=== PATIENT | female | born 1990 | race Caucasian/White ===

== ENCOUNTER 2017-06-28 21:36 | Emergency (ER) | payer BC ==
[2017-06-28 22:07] VITALS: BP 117/85
[2017-06-28] MEDS ORDERED: diphenhydrAMINE 50 MG/ML SDV IVPUSH ONE (22:21)
[2017-06-28] MEDS ORDERED: methylPREDNISolone Sodium Succinate 125 MG/2 ML SDV IVPUSH ONE (22:22)
[2017-06-28] MEDS ORDERED: Famotidine 20 MG/2 ML SDV IVPUSH ONE (22:22)
--- NOTE | 2017-06-28 22:27 | EDM.PDOC ---
ED HPI GENERAL MEDICAL PROBLEM - General Chief Complaint: Allergic Reaction Stated Complaint: ALLERGIC REACTION Time Seen by Provider: 06/28/17 22:12 Source of Information: Reports: Patient History Limitations: Reports: No Limitations - History of Present Illness INITIAL COMMENTS - FREE TEXT/NARRATIVE: This is a 26-year-old female. This evening she was having a normal meal watching a movie when she developed itching all over and some hives on her legs and her face. The only new thing was tomato paste that they used on their pizza but other than that she's eaten everything before. She does have a history many years ago where she had allergic reaction with hives that closed up her throat so she comes to the ER for evaluation. She denies any wheezing she denies any difficulty in swallowing. The hives on her legs seemed to resolve though she still has some hives on her forehead and the right side of her neck. She does complain of itching all over. She denies any other acute symptoms. The last time she had a reaction similar to this they did skin test on her later and they couldn't find out what was causing her reaction. - Related Data Allergies Allergy/AdvReac Type Severity Reaction Status Date / Time infliximab [From Remicade] Allergy Other Verified 06/28/17 22:12 Sulfa (Sulfonamide Allergy Rash Verified 06/28/17 22:11 Antibiotics) Home Meds: Home Meds . [No Known Home Meds] 06/28/17 [History] Past Medical History Gastrointestinal History: Reports: Other (See Below) Other Gastrointestinal History: crohns - Past Surgical History Other GI Surgeries/Procedures: abdominal surgeries for crohns Social & Family History - Tobacco Use Smoking Status *Q: Never Smoker - Caffeine Use Caffeine Use: Reports: Coffee - Recreational Drug Use Recreational Drug Use: No ED ROS ALLERGIC REACTION - Review of Systems Review Of Systems: See Below Constitutional: Reports: No Symptoms HEENT: Reports: Other (As per history of present illness) Respiratory: Denies: Shortness of Breath, Wheezing Cardiovascular: Reports: No Symptoms Endocrine: Reports: No Symptoms GI/Abdominal: Reports: No Symptoms : Reports: No Symptoms Musculoskeletal: Reports: No Symptoms Skin: Reports: Other (As per history of present illness) Neurological: Reports: No Symptoms Psychiatric: Reports: No Symptoms Hematologic/Lymphatic: Reports: No Symptoms ED EXAM GENERAL NO PERIP PULSE - Physical Exam Exam: See Below Exam Limited By: No Limitations General Appearance: Alert, WD/WN, No Apparent Distress Eye Exam: Bilateral Eye: Normal Inspection Ears: Normal External Exam Nose: Normal Inspection Throat/Mouth: Normal Inspection, Normal Lips, Normal Oropharynx, Normal Voice, No Airway Compromise Head: Atraumatic Neck: Supple Respiratory/Chest: No Respiratory Distress, Lungs Clear, Normal Breath Sounds Cardiovascular: Regular Rate, Rhythm, No Murmur GI/Abdominal: Soft Back Exam: Full Range of Motion Extremities: Normal Inspection, Normal Range of Motion, Other (There are no hives noted on her arms or legs presently) Neurological: Alert, Oriented Psychiatric: Other Skin Exam: Other (She only has 3 hives noted to all 4 had 1 on the right side of her neck at this time) Course - Vital Signs Last Recorded V/S: Last Vital Signs Temp 98.4 F 06/28/17 22:06 Pulse 73 06/28/17 22:06 Resp 20 06/28/17 22:06 BP 117/85 06/28/17 22:06 Pulse Ox 100 06/28/17 22:06 - Orders/Labs/Meds Meds: Medications Discontinued Medications Generic Name Dose Route Start Last Admin Trade Name Ajayq PRN Reason Stop Dose Admin Diphenhydramine HCl 25 mg 06/28/17 22:21 06/28/17 22:46 Benadryl IVPUSH 06/28/17 22:22 25 mg ONETIME ONE Administration Famotidine 20 mg 06/28/17 22:22 06/28/17 22:49 Pepcid IVPUSH 06/28/17 22:23 20 mg ONETIME ONE Administration Methylprednisolone Sodium Succinate 125 mg 06/28/17 22:22 06/28/17 22:51 Solu-Medrol IVPUSH 06/28/17 22:23 125 mg ONETIME ONE Administration - Re-Assessments/Exams Free Text/Narrative Re-Assessment/Exam: 06/28/17 23:17 Patient is feeling much better all the itching has resolved. She is somewhat sleepy and the hives on her forehead and neck appear to be better but they're not completely resolved. She wants to go home. She is having no difficulty in breathing and no difficulty in swallowing. Departure - Departure Time of Disposition: 23:18 Disposition: Home, Self-Care 01 Condition: Good Clinical Impression: Urticaria, Itching Allergic reaction Qualifiers: Encounter type: initial encounter Qualified Code(s): T78.40XA - Allergy, unspecified, initial encounter - Discharge Information Referrals: Dre Pemberton MD [Primary Care Provider] - Forms: ED Department Discharge Additional Instructions: In about 6 hours if the itching seems to come back and take another Benadryl 25 mg, if there is any difficulty in breathing or difficulty in swallowing and return to the ER immediately, follow up with your family physician this coming week for recheck to see if he can determine what might have caused the allergic reaction, look at the food that you ate this evening and see if there is anything unusual and it might give us a clue as to why you had this reaction, return to the ER as needed
== END 2017-06-28 23:30 | disposition home or self-care (01) ==
LOC: JD.ED 21:36
DX: L50.0 Allergic urticaria (principal); L29.9 Pruritus, unspecified; Z88.2 Allergy status to sulfonamides
CPT/HCPCS: 96374; 96375; 99283; J1200; J2930; 99282

== ENCOUNTER 2017-12-10 19:47 | Emergency (ER) | payer BC ==
[2017-12-10] MEDS ORDERED: Ondansetron 4 MG/2 ML SDV IVPUSH ONE (21:29)
[2017-12-10] MEDS ORDERED: HYDROmorphone 0.5 MG/0.5 ML SYRINGE IVPUSH ONE (21:29)
[2017-12-10] MEDS ORDERED: Sodium Chloride 0.9% 1,000 ML IV SCH (21:30)
[2017-12-10] MEDS ORDERED: Sodium Chloride 0.9% 10 ML Syringe FLUSH PRN (21:31)
--- NOTE | 2017-12-10 21:36 | EDM.PDOC ---
<Zay Bueno O - Last Filed: 12/10/17 23:55> ED HPI GENERAL MEDICAL PROBLEM - General Chief Complaint: Respiratory Problem Stated Complaint: FEVER,COUGHING Time Seen by Provider: 12/10/17 21:25 Source of Information: Reports: Patient History Limitations: Reports: No Limitations - History of Present Illness INITIAL COMMENTS - FREE TEXT/NARRATIVE: Patient is a 27-year-old female presents ED complaining of headache, fever, chills, and body aches that started Saturday afternoon. Patient developed a high fever this afternoon of 103.8. This was around 7:00 this evening. Take Tylenol and the temperature upon admission was 98.4. She is explained rigors with admission to the ED. She does have some CVA tenderness bilaterally. She has no pain with urination, nausea/vomiting, chest pain, cough, shortness of breath, rash, or recent sick exposures. She did not receive the flu vaccination. She is a past history of abdominal surgeries for Crohn's. 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 She is on entyvio an monoclonal antibody. She denies being . Generalized Pain Score (Numeric/FACES): 7 - Related Data Allergies Allergy/AdvReac Type Severity Reaction Status Date / Time infliximab [From Remicade] Allergy Other Verified 06/28/17 22:12 Sulfa (Sulfonamide Allergy Rash Verified 06/28/17 22:11 Antibiotics) Home Meds: Home Meds Vedolizumab [Entyvio] 0 mg IV ASDIRECTED 12/10/17 [History] Past Medical History Gastrointestinal History: Reports: Other (See Below) Other Gastrointestinal History: crohns - Past Surgical History Other GI Surgeries/Procedures: abdominal surgeries for crohns Social & Family History - Tobacco Use Smoking Status *Q: Never Smoker - Caffeine Use Caffeine Use: Reports: Coffee, Soda, Tea - Recreational Drug Use Recreational Drug Use: No ED ROS GENERAL - Review of Systems Review Of Systems: ROS reveals no pertinent complaints other than HPI. ED EXAM, GENERAL - Physical Exam Exam: See Below Exam Limited By: No Limitations General Appearance: Alert, WD/WN, Moderate Distress Eye Exam: Bilateral Eye: PERRL Ears: Normal External Exam, Normal Canal, Hearing Grossly Normal, Normal TMs Nose: Normal Inspection, Normal Mucosa, No Blood Throat/Mouth: Normal Inspection, Normal Oropharynx, Normal Voice, No Airway Compromise Head: Atraumatic, Normocephalic Neck: Normal Inspection, Supple, Non-Tender, Full Range of Motion Respiratory/Chest: No Respiratory Distress, Lungs Clear, Normal Breath Sounds, No Accessory Muscle Use, Chest Non-Tender Cardiovascular: Normal Peripheral Pulses, Tachycardia Peripheral Pulses: 4+: Radial (R) GI/Abdominal: Normal Bowel Sounds, Soft, Non-Tender, No Organomegaly, No Distention Back Exam: Normal Inspection, CVA Tenderness (L), CVA Tenderness (R) Extremities: Normal Inspection Neurological: Alert, Oriented, CN II-XII Intact, Normal Cognition, No Motor/ Sensory Deficits Psychiatric: Normal Affect, Normal Mood Skin Exam: Warm, Dry, Intact, Normal Color, No Rash Course - Vital Signs Last Recorded V/S: Last Vital Signs Temp 36.7 C 12/11/17 00:10 Pulse 99 12/11/17 00:10 Resp 16 12/11/17 00:10 BP 103/70 12/11/17 00:10 Pulse Ox 96 12/11/17 00:10 - Orders/Labs/Meds Labs: Laboratory Tests 12/10/17 12/10/17 12/10/17 Range/Units 21:50 21:50 21:50 WBC 4.74 (3.98-10.04) K/mm3 RBC 4.85 (3.98-5.22) M/mm3 Hgb 13.2 (11.2-15.7) gm/L Hct 40.7 (34.1-44.9) % MCV 83.9 (79.4-94.8) fl MCH 27.2 (25.6-32.2) pg MCHC 32.4 (32.2-35.5) g/dl RDW Std Deviation 40.1 (36.4-46.3) fL Plt Count 140 L (182-369) K/mm3 MPV 10.9 (9.4-12.3) fl Neutrophils % (Manual) 88 H (40-60) % Band Neutrophils % 0 (0-10) % Lymphocytes % (Manual) 8 L (20-40) % Atypical Lymphs % 0 % Monocytes % (Manual) 3 (2-10) % Eosinophils % (Manual) 1 (0.7-5.8) % Basophils % (Manual) 0 L (0.1-1.2) Platelet Estimate Adequate RBC Morph Comment Normal Sodium 135 L (136-145) mEq/L Potassium 3.7 (3.5-5.1) mEq/L Chloride 101 (98-107) mEq/L Carbon Dioxide 22 (21-32) mEq/L Anion Gap 15.7 H (5-15) BUN 12 (7-18) mg/dL Creatinine 0.9 (0.55-1.02) mg/dL Est Cr Clr Drug Dosing 69.86 mL/min Estimated GFR (MDRD) > 60 (>60) mL/min BUN/Creatinine Ratio 13.3 L (14-18) Glucose 104 (74-106) mg/dL Lactic Acid 0.8 (0.4-2.0) mmol/L Calcium 8.9 (8.5-10.1) mg/dL Total Bilirubin 0.4 (0.2-1.0) mg/dL AST 20 (15-37) U/L ALT 20 (14-59) U/L Alkaline Phosphatase 52 (46-116) U/L C-Reactive Protein (<1.0) mg/dL Total Protein 7.5 (6.4-8.2) g/dl Albumin 3.4 (3.4-5.0) g/dl Globulin 4.1 gm/dL Albumin/Globulin Ratio 0.8 L (1-2) Urine Color (Yellow) Urine Appearance (Clear) Urine pH (5.0-8.0) Ur Specific [place] (1.005-1.030) Urine Protein (Negative) Urine Glucose (UA) (Negative) Urine Ketones (Negative) Urine Occult Blood (Negative) Urine Nitrite (Negative) Urine Bilirubin (Negative) Urine Urobilinogen (0.2-1.0) Ur Leukocyte Esterase (Negative) Urine RBC (0-5) /hpf Urine WBC (0-5) /hpf Ur Epithelial Cells (0-5) /hpf Urine Bacteria (FEW) /hpf Urine Mucus (FEW) /hpf Urine HCG, Qual (NEGATIVE) 12/10/17 12/10/17 12/10/17 Range/Units 21:50 22:25 22:25 WBC (3.98-10.04) K/mm3 RBC (3.98-5.22) M/mm3 Hgb (11.2-15.7) gm/L Hct (34.1-44.9) % MCV (79.4-94.8) fl MCH (25.6-32.2) pg MCHC (32.2-35.5) g/dl RDW Std Deviation (36.4-46.3) fL Plt Count (182-369) K/mm3 MPV (9.4-12.3) fl Neutrophils % (Manual) (40-60) % Band Neutrophils % (0-10) % Lymphocytes % (Manual) (20-40) % Atypical Lymphs % % Monocytes % (Manual) (2-10) % Eosinophils % (Manual) (0.7-5.8) % Basophils % (Manual) (0.1-1.2) Platelet Estimate RBC Morph Comment Sodium (136-145) mEq/L Potassium (3.5-5.1) mEq/L Chloride (98-107) mEq/L Carbon Dioxide (21-32) mEq/L Anion Gap (5-15) BUN (7-18) mg/dL Creatinine (0.55-1.02) mg/dL Est Cr Clr Drug Dosing mL/min Estimated GFR (MDRD) (>60) mL/min BUN/Creatinine Ratio (14-18) Glucose (74-106) mg/dL Lactic Acid (0.4-2.0) mmol/L Calcium (8.5-10.1) mg/dL Total Bilirubin (0.2-1.0) mg/dL AST (15-37) U/L ALT (14-59) U/L Alkaline Phosphatase (46-116) U/L C-Reactive Protein 5.8 H* (<1.0) mg/dL Total Protein (6.4-8.2) g/dl Albumin (3.4-5.0) g/dl Globulin gm/dL Albumin/Globulin Ratio (1-2) Urine Color Yellow (Yellow) Urine Appearance Clear (Clear) Urine pH 5.5 (5.0-8.0) Ur Specific [place] > or = 1.030 (1.005-1.030) Urine Protein 3+ H (Negative) Urine Glucose (UA) Negative (Negative) Urine Ketones 1+ H (Negative) Urine Occult Blood 3+ H (Negative) Urine Nitrite Negative (Negative) Urine Bilirubin Negative (Negative) Urine Urobilinogen 0.2 (0.2-1.0) Ur Leukocyte Esterase Negative (Negative) Urine RBC 75-100 H (0-5) /hpf Urine WBC 0-5 (0-5) /hpf Ur Epithelial Cells 0-5 (0-5) /hpf Urine Bacteria Moderate H (FEW) /hpf Urine Mucus Few (FEW) /hpf Urine HCG, Qual Negative (NEGATIVE) Meds: Medications Discontinued Medications Generic Name Dose Route Start Last Admin Trade Name Soledad PRN Reason Stop Dose Admin Acetaminophen 975 mg 12/10/17 22:38 12/10/17 22:45 Tylenol PO 12/10/17 22:39 975 mg NOW ONE Administration Hydromorphone HCl 0.5 mg 12/10/17 21:29 12/10/17 22:30 Dilaudid IVPUSH 12/10/17 21:30 0.5 mg ONETIME ONE Administration Sodium Chloride 1,000 mls @ 999 mls/hr 12/10/17 21:30 12/10/17 22:29 Normal Saline IV 999 mls/hr ASDIRECTED ZENON Administration Levofloxacin 500 mg 12/11/17 00:48 12/11/17 01:09 Levaquin PO 12/11/17 00:49 500 mg ONETIME ONE Administration Ondansetron HCl 4 mg 12/10/17 21:29 12/10/17 22:30 Zofran IVPUSH 12/10/17 21:30 4 mg ONETIME ONE Administration Sodium Chloride 10 ml 12/10/17 21:31 12/10/17 22:30 Saline Flush FLUSH 10 ml ASDIRECTED PRN Administration Keep Vein Open - Re-Assessments/Exams Free Text/Narrative Re-Assessment/Exam: Temperature again was 99.4 with admission to the ED. Patient's is experiencing rigors on examination. She has CVA tenderness bilaterally. Otherwise examination is benign. I have ordered IV with normal saline 1 L IV bolus of normal saline, Dilaudid 0.5 mg IVP, and Zofran 4 mg IVP. Initial labs and studies will include blood cultures 2, hCG, lactic acid, UA, chemistry panel, and CBC. Temperature recheck 101.5 Fahrenheit, ordered Tylenol 975 mg by mouth. UA did reveal 3+ protein, 1+ ketones, occult blood 3+, urine RBC 7500, bacteria moderate, negative leukocyte esterase, negative nitrates. HCG was negative. Will obtain CT the abdomen and pelvis without contrast to ensure no kidney stone is present injury to rbc's and the blood and also possible infection. Discussed with Dr. Ramos and he agrees with plan. 12/10/17 23:11 discussed with patient will be obtain a CT of the abdomen and pelvis without contrast. She recently started coughing again. Nonproductive. Will obtain a chest x-ray one view. Blood in the urine may be associated with upper expiratory infection contributing to go glomular nephritis. CRP is 5.8. CXR: No acute findings. Reviewed with Dr. Ramos. 2[address] CT abdomen and pelvis has been taking waiting for results. Dr. Ramos reviewed the CT with no obvious concerning findings. Patient will be discharged home with instructions. Notified if any concerning findings. Departure - Departure Time of Disposition: 23:57 Disposition: Home, Self-Care 01 Condition: Good Clinical Impression: Viral upper respiratory tract infection with cough, Body aches Hematuria Qualifiers: Hematuria type: other microscopic Qualified Code(s): R31.29 - Other microscopic hematuria - Discharge Information Instructions: Viral Respiratory Infection, Wctp-Me-Dhdl, Hematuria, Adult Referrals: Dre Pemberton MD [Primary Care Provider] - Forms: ED Department Discharge, ED Return to Work/School Form Additional Instructions: Continue to push the fluids. In addition take Tylenol and ibuprofen in alternating fashion for fever. Ensure adequate rest. No work until fever free for 24 hours. Symptoms should improve over the next few days. Please see your PCP in one week to ensure resolution of hematuria. Return to the ED if you develop any new or worsening symptoms. Preliminary results of the CT abdomen and pelvis did not reveal any concerning finding. Final interpretation is pending. You will be notified if any concerns present. <Mino Ramos - Last Filed: 12/13/17 07:26> Course - Re-Assessments/Exams Free Text/Narrative Re-Assessment/Exam: 12/11/17 00:49 CT of the chest and abdomen was performed. The abdominal component does not show any abnormalities. However the lower portion of the chest reveals a consolidation behind the heart on the right side adjacent to the vertebra. This is compatible with pneumonia. Therefore the patient was called back and will respect be placed on Levaquin 500 mg once daily for the next 10 days with initial tablet provided through the ED tonight.
[2017-12-10] MEDS ORDERED: Acetaminophen 325 MG Tab PO ONE (22:38)
[2017-12-11 00:14] VITALS: BP 103/70
[2017-12-11] MEDS ORDERED: Levofloxacin 250 MG Tab PO ONE (00:48)
--- NOTE | 2017-12-11 07:37 | CR ---
Chest: Frontal view of the chest is obtained. Comparison: No prior chest x-ray. Mild increased density is seen adjacent to the right heart correlating to dense area of consolidation on subsequent CT exam. Lungs otherwise are clear. Heart size and mediastinum are normal. Bony structures are grossly intact. Impression: 1. Mild increased density adjacent to the right heart compatible with area of consolidation is seen on subsequent CT study. Diagnostic code #3
--- NOTE | 2017-12-11 07:37 | CT ---
CT abdomen and pelvis Technique: Multiple axial sections were obtained from above the dome of the diaphragm inferiorly through the pubic symphysis. Intravenous and oral contrast not utilized. Study has been performed as a ureteral stone protocol. Findings: Dense area of consolidation seen within the right lung base. This raises the possibility of pneumonia and was not completely included on this exam. Noncontrast appearance of the liver appears within normal limits. Spleen is enlarged with length of 16.7 cm. Adrenal glands show no nodule. No discrete abnormality seen within the pancreas. Gallbladder shows no gallstones. Surgical clips are seen within the right lower abdomen. Cyst noted within the right ovary measuring about 3.6 cm. No additional pelvic abnormality is seen. Kidneys show no abnormal calcifications. No ureteral dilatation or ureteral stone are identified. Bone window settings were reviewed which appear within normal limits for the patient's age. Impression: 1. Splenomegaly with length of 16.7 cm. 2. Dense consolidation within the right lung base most likely representing pneumonia. This was incompletely included on this exam. 3. No renal calculi or ureteral stone is seen. 4. 3.6 cm right ovarian cyst. Diagnostic code #3 Agree with preliminary report issued by [facility] ([facility] preliminary report dictated on 12/11/17, 1:10 AM Central Time)
== END 2017-12-11 00:10 | disposition home or self-care (01) ==
LOC: JD.ED 19:47
DX: J06.9 Acute upper respiratory infection, unspecified (principal); R31.29 Other microscopic hematuria; Z88.2 Allergy status to sulfonamides; Z88.8 Allergy status to other drugs, medicaments and biological substances
CPT/HCPCS: 36415; 71045; 74176; 80053; 81001; 81025; 83605; 85025; 86140; 87040; 87804; 96361; 96374; 96375; 99284; A9270; J1170; J2405; J7040; J7050

== ENCOUNTER 2018-06-20 04:17 | Inpatient (IN) | payer BC ==
[2018-06-20] MEDS ORDERED: Ondansetron 4 MG/2 ML SDV IVPUSH ONE ×3 (04:37→09:14)
[2018-06-20] MEDS ORDERED: HYDROmorphone 0.5 MG/0.5 ML SYRINGE IVPUSH ONE ×2 (04:38→07:34)
--- NOTE | 2018-06-20 04:44 | EDM.PDOC ---
ED HPI GENERAL MEDICAL PROBLEM - General Chief Complaint: Abdominal Pain Stated Complaint: ABDOMINAL PAIN & VOMITING Time Seen by Provider: 06/20/18 04:24 Source of Information: Reports: Patient, Family (), RN Notes Reviewed History Limitations: Reports: No Limitations - History of Present Illness INITIAL COMMENTS - FREE TEXT/NARRATIVE: The patient states that she developed upper abdominal pain, nausea, and emesis, around 16:00 yesterday afternoon, , 06/19/2018. The pain is achy and sharp in character. It has been coming and going. The patient has not identified any modifiers. No associated diarrhea. No fever, although she has had chills. No urinary symptoms. The patient states that she has history of Crohn disease, and that her symptoms are similar to prior Crohn's flares, except that she ordinarily would have diarrhea. Due to the patient's nausea and vomiting, she has not tried any home medications. No recent spoiled food. No similarly ill contacts. No recent antibiotics. No recent travel. The patient's PCP is Dr. Pemberton. Her Associate Medical Director is Dr. Tashi Rousseau , at [facility]. Abdomen Pain Score (Numeric/FACES): 6 - Related Data Allergies Allergy/AdvReac Type Severity Reaction Status Date / Time infliximab [From Remicade] Allergy Other Verified 06/20/18 05:01 rifampin [From Rimactane] Allergy Cannot Verified 06/20/18 05:01 Remember Sulfa (Sulfonamide Allergy Rash Verified 06/20/18 05:01 Antibiotics) Home Meds: Home Meds Vedolizumab [Entyvio] 0 mg IV ASDIRECTED 12/10/17 [History] . [Unable to Verify Home Med List] 06/09/18 [History] Past Medical History Gastrointestinal History: Reports: Inflammatory Bowel Disease (Crohn disease) - Past Surgical History GI Surgical History: Reports: Other (See Below) (4 surgeries related to Crohn disease, including an ileostomy that was subsequently reversed) Social & Family History - Tobacco Use Smoking Status *Q: Never Smoker - Caffeine Use Caffeine Use: Reports: Coffee, Soda, Tea - Alcohol Use Alcohol Use History: Yes Alcohol Use Frequency: Rarely - Recreational Drug Use Recreational Drug Use: No - Living Situation & Occupation Living situation: Reports: , with Spouse 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 ED EXAM, GI/ABD - Physical Exam Exam: See Below Exam Limited By: No Limitations General Appearance: Alert, WD/WN, Moderate Distress (frequent retching) Eyes: Bilateral: Normal Appearance, EOMI Ears: Normal External Exam, Hearing Grossly Normal Nose: Normal Inspection, No Blood Throat/Mouth: Normal Inspection, Normal Lips, Normal Voice, No Airway Compromise Head: Atraumatic, Normocephalic Neck: Normal Inspection, Full Range of Motion Respiratory/Chest: No Respiratory Distress, Lungs Clear, Normal Breath Sounds, No Accessory Muscle Use Cardiovascular: Normal Peripheral Pulses, Regular Rate, Rhythm, No Edema, No Gallop, No JVD, No Murmur, No Rub GI/Abdominal Exam: Normal Bowel Sounds, Soft, No Organomegaly, No Distention, No Abnormal Bruit, No Mass, Tender (Palpation anywhere on the abdomen induces pain in the upper abdomen) (Female) Exam: Deferred Rectal (Female) Exam: Deferred Back Exam: Normal Inspection, Full Range of Motion, CVA Tenderness (L) (patient unsure), CVA Tenderness (R) (patient unsure) Extremities: Normal Inspection, Normal Range of Motion, No Pedal Edema, Normal Capillary Refill Neurological: Alert, Oriented, Normal Cognition, No Motor/Sensory Deficits Skin Exam: Warm, Dry, Intact, Normal Color, No Rash Course - Vital Signs Last Recorded V/S: Last Vital Signs Temp 36.6 C 06/20/18 04:23 Pulse 85 06/20/18 04:23 Resp 18 06/20/18 04:23 BP 126/82 06/20/18 04:23 Pulse Ox 99 06/20/18 04:23 - Orders/Labs/Meds Orders: Active Orders 24 hr Category Date Time Status Abdomen Pelvis w Cont [CT] Stat Exams 06/20/18 04:37 Taken Lidocaine 2% [Xylocaine 2% Jelly] Med 06/20/18 07:34 Stat 5 ml MUCMEM ONETIME STA Sodium Chloride 0.9% [Normal Saline] 1,000 ml Med 06/20/18 04:45 Active IV ASDIRECTED NG [Nasogastric Orogastric Tube Insertion] [OM.PC] Oth 06/20/18 07:31 Ordered Routine Medication Orders Sodium Chloride (Normal Saline) 1,000 mls @ 150 mls/hr IV ASDIRECTED ZENON Last Admin: 06/20/18 04:48 Dose: 150 mls/hr Labs: Laboratory Tests 06/20/18 06/20/18 06/20/18 Range/Units 04:50 04:50 05:57 WBC 7.63 (3.98-10.04) K/mm3 RBC 4.49 (3.98-5.22) M/mm3 Hgb 13.2 (11.2-15.7) gm/L Hct 40.3 (34.1-44.9) % MCV 89.8 (79.4-94.8) fl MCH 29.4 (25.6-32.2) pg MCHC 32.8 (32.2-35.5) g/dl RDW Std Deviation 42.9 (36.4-46.3) fL Plt Count 254 (182-369) K/mm3 MPV 11.0 (9.4-12.3) fl Neutrophils % (Manual) 86 H (40-60) % Band Neutrophils % 0 (0-10) % Lymphocytes % (Manual) 10 L (20-40) % Atypical Lymphs % 0 % Monocytes % (Manual) 3 (2-10) % Eosinophils % (Manual) 1 (0.7-5.8) % Basophils % (Manual) 0 L (0.1-1.2) Platelet Estimate Adequate RBC Morph Comment Normal Sodium 139 (136-145) mEq/L Potassium 3.9 (3.5-5.1) mEq/L Chloride 105 (98-107) mEq/L Carbon Dioxide 23 (21-32) mEq/L Anion Gap 14.9 (5-15) BUN 14 (7-18) mg/dL Creatinine 0.9 (0.55-1.02) mg/dL Est Cr Clr Drug Dosing 74.61 mL/min Estimated GFR (MDRD) > 60 (>60) mL/min BUN/Creatinine Ratio 15.6 (14-18) Glucose 145 H (74-106) mg/dL Calcium 9.6 (8.5-10.1) mg/dL Total Bilirubin 1.2 H (0.2-1.0) mg/dL AST 27 (15-37) U/L ALT 23 (14-59) U/L Alkaline Phosphatase 40 L (46-116) U/L Total Protein 7.7 (6.4-8.2) g/dl Albumin 4.1 (3.4-5.0) g/dl Globulin 3.6 gm/dL Albumin/Globulin Ratio 1.1 (1-2) Lipase 143 (73-393) U/L Urine Color Dark yellow (Yellow) Urine Appearance Clear (Clear) Urine pH 7.0 (5.0-8.0) Ur Specific [place] > or = 1.030 (1.005-1.030) Urine Protein 3+ H (Negative) Urine Glucose (UA) Negative (Negative) Urine Ketones 4+ H (Negative) Urine Occult Blood 1+ H (Negative) Urine Nitrite Negative (Negative) Urine Bilirubin 1+ H (Negative) Urine Urobilinogen 0.2 (0.2-1.0) Ur Leukocyte Esterase Negative (Negative) Urine RBC 5-10 H (0-5) /hpf Urine WBC 0-5 (0-5) /hpf Ur Epithelial Cells Not seen (0-5) /hpf Urine Bacteria Not seen (FEW) /hpf Urine Mucus Not seen (FEW) /hpf Urine HCG, Qual (NEGATIVE) 06/20/18 Range/Units 05:57 WBC (3.98-10.04) K/mm3 RBC (3.98-5.22) M/mm3 Hgb (11.2-15.7) gm/L Hct (34.1-44.9) % MCV (79.4-94.8) fl MCH (25.6-32.2) pg MCHC (32.2-35.5) g/dl RDW Std Deviation (36.4-46.3) fL Plt Count (182-369) K/mm3 MPV (9.4-12.3) fl Neutrophils % (Manual) (40-60) % Band Neutrophils % (0-10) % Lymphocytes % (Manual) (20-40) % Atypical Lymphs % % Monocytes % (Manual) (2-10) % Eosinophils % (Manual) (0.7-5.8) % Basophils % (Manual) (0.1-1.2) Platelet Estimate RBC Morph Comment Sodium (136-145) mEq/L Potassium (3.5-5.1) mEq/L Chloride (98-107) mEq/L Carbon Dioxide (21-32) mEq/L Anion Gap (5-15) BUN (7-18) mg/dL Creatinine (0.55-1.02) mg/dL Est Cr Clr Drug Dosing mL/min Estimated GFR (MDRD) (>60) mL/min BUN/Creatinine Ratio (14-18) Glucose (74-106) mg/dL Calcium (8.5-10.1) mg/dL Total Bilirubin (0.2-1.0) mg/dL AST (15-37) U/L ALT (14-59) U/L Alkaline Phosphatase (46-116) U/L Total Protein (6.4-8.2) g/dl Albumin (3.4-5.0) g/dl Globulin gm/dL Albumin/Globulin Ratio (1-2) Lipase (73-393) U/L Urine Color (Yellow) Urine Appearance (Clear) Urine pH (5.0-8.0) Ur Specific Yale (1.005-1.030) Urine Protein (Negative) Urine Glucose (UA) (Negative) Urine Ketones (Negative) Urine Occult Blood (Negative) Urine Nitrite (Negative) Urine Bilirubin (Negative) Urine Urobilinogen (0.2-1.0) Ur Leukocyte Esterase (Negative) Urine RBC (0-5) /hpf Urine WBC (0-5) /hpf Ur Epithelial Cells (0-5) /hpf Urine Bacteria (FEW) /hpf Urine Mucus (FEW) /hpf Urine HCG, Qual Negative (NEGATIVE) Meds: Medications Generic Name Dose Route Start Last Admin Trade Name Freq PRN Reason Stop Dose Admin Sodium Chloride 1,000 mls @ 150 mls/hr 06/20/18 04:45 06/20/18 04:48 Normal Saline IV 150 mls/hr ASDIRECTED ZENON Administration Discontinued Medications Generic Name Dose Route Start Last Admin Trade Name Freq PRN Reason Stop Dose Admin Diatrizoate Meglum/Diatrizoate Sod 90 ml 06/20/18 05:45 06/20/18 07:03 Gastrografin 37% PO 06/20/18 05:46 90 ml ONETIME ONE Administration Hydromorphone HCl 0.5 mg 06/20/18 04:38 06/20/18 04:48 Dilaudid IVPUSH 06/20/18 04:39 0.5 mg ONETIME ONE Administration Hydromorphone HCl 0.5 mg 06/20/18 07:34 Dilaudid IVPUSH 06/20/18 07:35 ONETIME ONE Iopamidol 100 ml 06/20/18 05:45 06/20/18 07:03 Isovue-300 (61%) IVPUSH 06/20/18 05:46 100 ml ONETIME ONE Administration Ondansetron HCl 4 mg 06/20/18 04:37 06/20/18 04:56 Zofran IVPUSH 06/20/18 04:38 4 mg ONETIME ONE Administration Ondansetron HCl 4 mg 06/20/18 05:43 06/20/18 05:47 Zofran IVPUSH 06/20/18 05:44 4 mg ONETIME ONE Administration - Re-Assessments/Exams Free Text/Narrative Re-Assessment/Exam: 06/20/18 04:44 Because of the patient's history of Crohn disease with four related surgeries, I am concerned that the patient may be suffering from a small bowel obstruction. I have ordered blood work, a urinalysis, a urine test, and a CT scan of the abdomen and pelvis with oral and IV contrast. The patient will receive IV fluid, Dilaudid, and Zofran. 06/20/18 05:23 Following Dilaudid and Zofran, the patient is looking much better - even back to normal. She believes that she can provide a urine sample for us. 06/20/18 07:23 CT of the abdomen and pelvis with oral and IV contrast is read by [facility] as: 1. Findings consistent with distal partial small bowel obstruction. Clinical correlation is recommended. 2. RIGHT partial colectomy with ileo-ascending anastomosis. 3. Rectosigmoid colonic anastomosis. 4. Mild splenomegaly. 5. RIGHT adnexal cystic lesion, interval increase in size. Pelvic sonography recommended for further evaluation. 6. 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 06/20/18 07:31 Test results discussed with the patient and her . I am recommending that we place an NG tube to low intermittent suction, and admit her to the medical floor for IV fluid, pain control, nausea control and ambulation. The patient and her are agreeable. 06/20/18 07:[address] Guerrero at 07:32. He accepts the patient for admission to Med-Surg. Departure - Departure Time of Disposition: 07:35 Disposition: Admitted As Inpatient 67 Condition: Fair Clinical Impression: Partial small bowel obstruction - Discharge Information *PRESCRIPTION DRUG MONITORING PROGRAM REVIEWED*: Not Applicable *COPY OF PRESCRIPTION DRUG MONITORING REPORT IN PATIENT KILEY: Not Applicable Referrals: Dre Pemberton MD [Primary Care Provider] - - My Orders Last 24 Hours: My Active Orders 06/20/18 04:37 Abdomen Pelvis w Cont [CT] Stat 06/20/18 04:45 Sodium Chloride 0.9% [Normal Saline] 1,000 ml IV ASDIRECTED 06/20/18 07:31 NG [Nasogastric Orogastric Tube Insertion] [OM.PC] Routine 06/20/18 07:34 Lidocaine 2% [Xylocaine 2% Jelly] 5 ml MUCMEM ONETIME STA - Assessment/Plan Last 24 Hours: My Active Orders 06/20/18 04:37 Abdomen Pelvis w Cont [CT] Stat 06/20/18 04:45 Sodium Chloride 0.9% [Normal Saline] 1,000 ml IV ASDIRECTED 06/20/18 07:31 NG [Nasogastric Orogastric Tube Insertion] [OM.PC] Routine 06/20/18 07:34 Lidocaine 2% [Xylocaine 2% Jelly] 5 ml MUCMEM ONETIME STA
[2018-06-20] MEDS ORDERED: Sodium Chloride 0.9% 1,000 ML IV SCH (04:45)
[2018-06-20] MEDS ORDERED: Diatrizoate Meglumine/Diatrizoate Sodium 37% 120 ML Bottle PO ONE (05:45)
[2018-06-20] MEDS ORDERED: Iopamidol 612 MG/ML 100 ML Bottle IVPUSH ONE (05:45)
[2018-06-20] MEDS ORDERED: Lidocaine 2% Jelly 5 ML Tube MUCMEM STA (07:34)
[2018-06-20] MEDS ORDERED: Lidocaine 2% Jelly 10 ML Urojet ONE (07:38)
[2018-06-20] MEDS ORDERED: Lidocaine 2% Jelly 10 ML Urojet MUCMEM ONE (07:53)
--- NOTE | 2018-06-20 10:58 | CT ---
CT abdomen and pelvis Technique: Multiple axial sections were obtained from above the dome of the diaphragm inferiorly through the pubic symphysis. Delayed images were obtained through the bladder. Comparison: Prior noncontrast CT abdomen and pelvis exam of 12/10/17. Findings: Visualized lung bases show nothing acute. Liver contains no focal abnormality. Spleen is slightly enlarged with length of 16.1 cm. This is a stable finding from previous CT exam. Adrenal glands show no nodule. Kidneys show symmetric contrast enhancement without hydronephrosis or mass. Gallbladder contains no calcified gallstones. Aorta shows no aneurysmal dilatation. No retroperitoneal adenopathy is seen. Cystic lesion seen within the right pelvis measuring 5.5 cm in size. Cystic lesion is seen on prior CT study in the same area measuring 3.6 cm. Dilated mid and distal small bowel loops are seen. Distal ileal loops are decompressed. Uncertain if obstruction is due to poorly seen stenosis from Crohn's disease or represents an adhesion. Minimal free fluid seen within the pelvis which is likely physiologic. Prominent left gonadal vein is seen as well as mild varicosities within the left side of the pelvis which likely represents valvular incompetence of the left gonadal vein. Previous partial colectomy is noted. Delayed images show contrast within the bladder. Bone window settings were reviewed which appear within normal limits for the patient's age. Impression: 1. Findings compatible with at least a partial small bowel obstruction. This occurs within the distal small bowel. Uncertain if obstruction is due to poorly seen structure from previous Crohn's disease or represents adhesion. 2. Other incidental findings as noted above. Diagnostic code #3 Agree with preliminary report issued by [employer], preliminary report finalized on 06/20/18, 8:20 AM Central Time
[2018-06-20] MEDS ORDERED: hydrALAZINE 20 MG/ML SDV IVPUSH PRN (11:25)
[2018-06-20] MEDS ORDERED: Metoprolol Tartrate 5 MG/5 ML SDV IVPUSH PRN (11:25)
[2018-06-20] MEDS ORDERED: Pantoprazole 40 MG Vial IVPUSH ONE (11:26)
[2018-06-20] MEDS ORDERED: Acetaminophen 325 MG Tab PO PRN (11:26)
[2018-06-20] MEDS ORDERED: HYDROmorphone 0.5 MG/0.5 ML Syringe IVPUSH PRN (11:26)
[2018-06-20] MEDS ORDERED: LORazepam 2 MG/ML SDV IV PRN (11:26)
[2018-06-20] MEDS ORDERED: Albuterol/Ipratropium 3.0-0.5 MG/3 ML Neb Soln NEB PRN (11:26)
[2018-06-20] MEDS ORDERED: Temazepam 7.5 MG Cap PO PRN (11:26)
[2018-06-20] MEDS ORDERED: Scopolamine 1.5 MG Transdermal Patch TRDERM STA (11:32)
[2018-06-20] MEDS: Metoclopramide 10 MG/2 ML SDV IVPUSH SCH ×4 (11:53→23:50)
[2018-06-20] MEDS: Dextrose 5%-Lactated Ringers 1,000 ML IV SCH ×2 (11:54→19:38)
--- NOTE | 2018-06-20 11:57 | PCM.HP ---
<Lisandra Rush - Last Filed: 06/20/18 12:04> H&P History of Present Illness - General Date of Service: 06/20/18 Admit Problem/Dx: Admission Diagnosis/Problem Admission Diagnosis/Problem Small bowel obstruction Source of Information: Patient - History of Present Illness Initial Comments - Free Text/Narative: 27 y/o patient presented to ER early this morning 06/20 with complaints of abdominal pain, nausea, and vomiting. This began suddenly on the afternoon of . She had abdominal pain after work and vomited later that evening after eating supper. She was then awake through the night with continuous abdominal pain, nausea, and vomiting. Her symptoms worsened and she was unable to sleep so she came to the ER around 0400. The patient has a history of Crohn disease, and stated that her symptoms are similar to prior Crohn's flares, except that she ordinarily would have diarrhea, which she is not currently experiencing. She was diagnosed with Crohn's disease at the age of 11. She has had four surgeries related to her Crohn disease, all occurring over a span of 13 months in 2012. She states she was very sick at the time and experienced a severe infection and rapid weight loss and had to have a feeding tube. Since then she has struggled with frequent diarrhea and difficulty gaining weight. She sees a podiatrist, Dr. Tashi Rousseau, at [facility]. PCP is Dr. Dre Pemberton. She denies recent antibiotic use, spoiled food, travel, and sick contacts. She was given IVF, dilaudid, and zofran in the ER, which improved her symptoms. Further ER workup included labs and imaging. Labs displayed glucose elevated at 145 and bilirubin slightly elevated at 1.2. UPT was negative. UA showed ketones , protein, and blood in urine. 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 NG tube was placed. Patient was admitted for further management of small bowel obstruction. Abdomen Pain Score (Numeric/FACES): 6 - Related Data Allergies/Adverse Reactions: Allergies Allergy/AdvReac Type Severity Reaction Status Date / Time infliximab [From Remicade] Allergy Other Verified 06/20/18 10:04 rifampin [From Rimactane] Allergy Cannot Verified 06/20/18 10:04 Remember Sulfa (Sulfonamide Allergy Rash Verified 06/20/18 10:04 Antibiotics) Home Medications: Home Meds Vedolizumab [Entyvio] 0 mg IV ASDIRECTED 12/10/17 [History] . [Unable to Verify Home Med List] 06/09/18 [History] Past Medical History Gastrointestinal History: Reports: Other (See Below) Other Gastrointestinal History: Crohns Neurological History: Reports: Headaches, Chronic Psychiatric History: Reports: Anxiety, Depression Hematologic History: Reports: Anemia, Iron Deficiency - Past Surgical History GI Surgical History: Reports: Other (See Below) Social & Family History - Tobacco Use Smoking Status *Q: Never Smoker Second Hand Smoke Exposure: No - Caffeine Use Caffeine Use: Reports: Coffee, Soda, Tea - Recreational Drug Use Recreational Drug Use: No - Living Situation & Occupation Living situation: Reports: , with Spouse 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[employer]) H&P Review of Systems - Review of Systems: Review Of Systems: See Below General: Reports: Fatigue HEENT: Reports: No Symptoms Pulmonary: Reports: No Symptoms Cardiovascular: Reports: No Symptoms Gastrointestinal: Reports: Abdominal Pain, Constipation, Nausea, Vomiting Genitourinary: Reports: Dysuria Musculoskeletal: Reports: No Symptoms Skin: Reports: No Symptoms Psychiatric: Reports: No Symptoms Neurological: Reports: No Symptoms Hematologic/Lymphatic: Reports: No Symptoms Immunologic: Reports: No Symptoms Review of Systems Comment:: Patient is feeling better after admission than she was when she initially came to the ER this AM. Pain, nausea, and vomiting have improved but are still present. She says the pain is generalized throughout her abdomen and is achy and constant. It was previously sharper and more severe. She also reports dysuria. She denies diarrhea, and actually reports constipation, which is unusual for her with her Crohn's disease. She also reports fatigue as she was up most of the night. She reports no other symptoms and has no question or concerns at this time. Exam - Exam Exam: See Below - Vital Signs Vital Signs: Last Vital Signs Temp 97.0 F 06/20/18 10:16 Pulse 90 06/20/18 10:16 Resp 14 06/20/18 10:16 BP 129/72 06/20/18 10:16 Pulse Ox 100 06/20/18 10:16 Weight: 49.895 kg - Exam Quality Assessment: Other (NG tube) General: Alert, Oriented, Cooperative, Mild Distress HEENT: Conjunctiva Clear, EOMI, Hearing Intact, Mucosa Moist & [place], Nares Patent, Normal Nasal Septum, Pupils Equal, Pupils Reactive Neck: Supple, Trachea Midline, 2 Lungs: Clear to Auscultation, Normal Respiratory Effort Cardiovascular: Regular Rate, Regular Rhythm GI/Abdominal Exam: Soft, No Organomegaly, No Distention, No Mass, Guarding, Tender (Female) Exam: Deferred Rectal (Female) Exam: Deferred Back Exam: Normal Inspection, Full Range of Motion, NT Extremities: Normal Inspection, Non-Tender, No Pedal Edema Peripheral Pulses: 2+: Radial (L), Radial (R), Posterior Tibial (L), Posterior Tibial (R) Skin: Warm, Dry, Intact Neuro Extensive - Mental Status: Alert, Oriented x3, Normal Mood/Affect, Normal Cognition, Memory Intact Psychiatric: Alert, Normal Affect, Normal Mood Physical Exam Comments:: Patient is pleasant and cooperative but appears thin, fatigued, and in mild distress. She currently has an NG tube placed. She has generalized abdominal tenderness with guarding upon light palpation. No bowel sounds are heard. No distension or masses. No other abnormalities found upon exam. - Patient Data Lab Results Last 24 hrs: Laboratory Results - last 24 hr 06/20/18 06/20/18 06/20/18 Range/Units 04:50 04:50 05:57 WBC 7.63 (3.98-10.04) K/mm3 RBC 4.49 (3.98-5.22) M/mm3 Hgb 13.2 (11.2-15.7) gm/L Hct 40.3 (34.1-44.9) % MCV 89.8 (79.4-94.8) fl MCH 29.4 (25.6-32.2) pg MCHC 32.8 (32.2-35.5) g/dl RDW Std Deviation 42.9 (36.4-46.3) fL Plt Count 254 (182-369) K/mm3 MPV 11.0 (9.4-12.3) fl Neutrophils % (Manual) 86 H (40-60) % Band Neutrophils % 0 (0-10) % Lymphocytes % (Manual) 10 L (20-40) % Atypical Lymphs % 0 % Monocytes % (Manual) 3 (2-10) % Eosinophils % (Manual) 1 (0.7-5.8) % Basophils % (Manual) 0 L (0.1-1.2) Platelet Estimate Adequate RBC Morph Comment Normal Sodium 139 (136-145) mEq/L Potassium 3.9 (3.5-5.1) mEq/L Chloride 105 (98-107) mEq/L Carbon Dioxide 23 (21-32) mEq/L Anion Gap 14.9 (5-15) BUN 14 (7-18) mg/dL Creatinine 0.9 (0.55-1.02) mg/dL Est Cr Clr Drug Dosing 74.61 mL/min Estimated GFR (MDRD) > 60 (>60) mL/min BUN/Creatinine Ratio 15.6 (14-18) Glucose 145 H (74-106) mg/dL Calcium 9.6 (8.5-10.1) mg/dL Total Bilirubin 1.2 H (0.2-1.0) mg/dL AST 27 (15-37) U/L ALT 23 (14-59) U/L Alkaline Phosphatase 40 L (46-116) U/L Total Protein 7.7 (6.4-8.2) g/dl Albumin 4.1 (3.4-5.0) g/dl Globulin 3.6 gm/dL Albumin/Globulin Ratio 1.1 (1-2) Lipase 143 (73-393) U/L Urine Color Dark yellow (Yellow) Urine Appearance Clear (Clear) Urine pH 7.0 (5.0-8.0) Ur Specific [place] > or = 1.030 (1.005-1.030) Urine Protein 3+ H (Negative) Urine Glucose (UA) Negative (Negative) Urine Ketones 4+ H (Negative) Urine Occult Blood 1+ H (Negative) Urine Nitrite Negative (Negative) Urine Bilirubin 1+ H (Negative) Urine Urobilinogen 0.2 (0.2-1.0) Ur Leukocyte Esterase Negative (Negative) Urine RBC 5-10 H (0-5) /hpf Urine WBC 0-5 (0-5) /hpf Ur Epithelial Cells Not seen (0-5) /hpf Urine Bacteria Not seen (FEW) /hpf Urine Mucus Not seen (FEW) /hpf Urine HCG, Qual (NEGATIVE) 06/20/18 Range/Units 05:57 WBC (3.98-10.04) K/mm3 RBC (3.98-5.22) M/mm3 Hgb (11.2-15.7) gm/L Hct (34.1-44.9) % MCV (79.4-94.8) fl MCH (25.6-32.2) pg MCHC (32.2-35.5) g/dl RDW Std Deviation (36.4-46.3) fL Plt Count (182-369) K/mm3 MPV (9.4-12.3) fl Neutrophils % (Manual) (40-60) % Band Neutrophils % (0-10) % Lymphocytes % (Manual) (20-40) % Atypical Lymphs % % Monocytes % (Manual) (2-10) % Eosinophils % (Manual) (0.7-5.8) % Basophils % (Manual) (0.1-1.2) Platelet Estimate RBC Morph Comment Sodium (136-145) mEq/L Potassium (3.5-5.1) mEq/L Chloride (98-107) mEq/L Carbon Dioxide (21-32) mEq/L Anion Gap (5-15) BUN (7-18) mg/dL Creatinine (0.55-1.02) mg/dL Est Cr Clr Drug Dosing mL/min Estimated GFR (MDRD) (>60) mL/min BUN/Creatinine Ratio (14-18) Glucose (74-106) mg/dL Calcium (8.5-10.1) mg/dL Total Bilirubin (0.2-1.0) mg/dL AST (15-37) U/L ALT (14-59) U/L Alkaline Phosphatase (46-116) U/L Total Protein (6.4-8.2) g/dl Albumin (3.4-5.0) g/dl Globulin gm/dL Albumin/Globulin Ratio (1-2) Lipase (73-393) U/L Urine Color (Yellow) Urine Appearance (Clear) Urine pH (5.0-8.0) Ur Specific [place] (1.005-1.030) Urine Protein (Negative) Urine Glucose (UA) (Negative) Urine Ketones (Negative) Urine Occult Blood (Negative) Urine Nitrite (Negative) Urine Bilirubin (Negative) Urine Urobilinogen (0.2-1.0) Ur Leukocyte Esterase (Negative) Urine RBC (0-5) /hpf Urine WBC (0-5) /hpf Ur Epithelial Cells (0-5) /hpf Urine Bacteria (FEW) /hpf Urine Mucus (FEW) /hpf Urine HCG, Qual Negative (NEGATIVE) Result Diagrams: 06/20/18 04:50 06/20/18 04:50 - Problem List (1) Partial small bowel obstruction SNOMED Code(s): 296672559 ICD Code: K56.600 - PARTIAL INTESTINAL OBSTRUCTION, UNSPECIFIED TO CAUSE Status: Acute Current Visit: Yes Problem List Initiated/Reviewed/Updated: Yes Orders Last 24hrs: Active Orders 24 hr Category Date Time Status Admission Status [Patient Status] [ADT] Routine ADT 06/20/18 09:33 Active Ambulate [RC] ASDIRECTED Care 06/20/18 11:31 Active Height and Weight [RC] DAILY Care 06/20/18 11:26 Active Intake and Output [RC] QSHIFT Care 06/20/18 11:26 Active Oxygen Therapy [RC] PRN Care 06/20/18 11:26 Active RT Aerosol Therapy [RC] ASDIRECTED Care 06/20/18 11:28 Active Up ad Soni [RC] ASDIRECTED Care 06/20/18 11:26 Active VTE/DVT Education [RC] PER UNIT ROUTINE Care 06/20/18 11:26 Active Vital Signs [RC] Q4H Care 06/20/18 11:26 Active Consult to Spiritual Care [CONS] Routine Cons 06/20/18 11:26 Active Nothing per Oral Now Diet [DIET] Diet 06/20/18 Lunch Active BASIC METABOLIC PANEL,BMP [CHEM] AM Lab 06/21/18 05:11 Ordered BASIC METABOLIC PANEL,BMP [CHEM] AM Lab 06/22/18 05:11 Ordered BASIC METABOLIC PANEL,BMP [CHEM] AM Lab 06/23/18 05:11 Ordered C-REACTIVE PROTEIN [CHEM] AM Lab 06/21/18 05:11 Ordered C-REACTIVE PROTEIN [CHEM] AM Lab 06/22/18 05:11 Ordered C-REACTIVE PROTEIN [CHEM] AM Lab 06/23/18 05:11 Ordered CBC WITH AUTO DIFF [HEME] AM Lab 06/21/18 05:11 Ordered CBC WITH AUTO DIFF [HEME] AM Lab 06/22/18 05:11 Ordered CBC WITH AUTO DIFF [HEME] AM Lab 06/23/18 05:11 Ordered MAGNESIUM [CHEM] AM Lab 06/21/18 05:11 Ordered MAGNESIUM [CHEM] AM Lab 06/22/18 05:11 Ordered MAGNESIUM [CHEM] AM Lab 06/23/18 05:11 Ordered Acetaminophen [Tylenol] Med 06/20/18 11:26 Active 650 mg PO Q4H PRN Albuterol/Ipratropium [DuoNeb 3.0-0.5 MG/3 ML] Med 06/20/18 11:26 Active 3 ml NEB Q4H PRN Dextrose 5%-Lactated Ringers 1,000 ml Med 06/20/18 11:45 Active IV ASDIRECTED HYDROmorphone [Dilaudid] Med 06/20/18 11:26 Active 0.5 mg IVPUSH Q2H PRN LORazepam [Ativan] Med 06/20/18 11:26 Active 1 mg IV Q6H PRN Magnesium Rep Pharmacy to Dose [Pharmacy to Dose - Med 06/20/18 11:30 Active Magnesium Replacement] 1 dose .XX ASDIRECTED Metoclopramide [Reglan] Med 06/20/18 12:00 Active 10 mg IVPUSH Q6H Metoprolol Tartrate [Lopressor] Med 06/20/18 11:25 Active 5 mg IVPUSH Q4H PRN Potassium Rep Pharmacy to Dose [Pharmacy to Dose - Med 06/20/18 11:30 Active Potassium Replacement] 1 dose .XX ASDIRECTED Remove Patch Med 06/23/18 11:45 Once 0 ea TRDERM ONETIME ONE Sodium Chloride 0.9% [Normal Saline] 1,000 ml Med 06/20/18 04:45 Active IV ASDIRECTED Temazepam [Restoril] Med 06/20/18 11:26 Active 7.5 mg PO BEDTIME PRN hydrALAZINE [Apresoline] Med 06/20/18 11:25 Active 20 mg IVPUSH Q4H PRN NG [Nasogastric Orogastric Tube Insertion] [OM.PC] Oth 06/20/18 07:31 Ordered Routine Sequential Compression Device [OM.PC] Per Unit Routine Oth 06/20/18 11:26 Ordered Resuscitation Status Routine Resus Stat 06/20/18 11:26 Ordered Medication Orders Acetaminophen (Tylenol) 650 mg PO Q4H PRN PRN Reason: Pain (Mild 1-3)/fever Albuterol/Ipratropium (Duoneb 3.0-0.5 Mg/3 Ml) 3 ml NEB Q4H PRN PRN Reason: Shortness Of Breath/wheezing Hydralazine HCl (Apresoline) 20 mg IVPUSH Q4H PRN PRN Reason: Hypertension Hydromorphone HCl (Dilaudid) 0.5 mg IVPUSH Q2H PRN PRN Reason: Pain (severe 7-10) Sodium Chloride (Normal Saline) 1,000 mls @ 150 mls/hr IV ASDIRECTED [facility] Last Admin: 06/20/18 04:48 Dose: 150 mls/hr Dextrose/Lactated Ringer's (Dextrose 5%-Lactated Ringers) 1,000 mls @ 125 mls/ hr IV ASDIRECTED [facility] Lorazepam (Ativan) 1 mg IV Q6H PRN PRN Reason: Anxiety Magnesium Sulfate (Pharmacy To Dose - Magnesium Replacement) 1 dose .XX ASDIRECTED [facility] Metoclopramide HCl (Reglan) 10 mg IVPUSH Q6H [facility] Metoprolol Tartrate (Lopressor) 5 mg IVPUSH Q4H PRN PRN Reason: Tachycardia Miscellaneous Information (Remove Patch) 0 ea TRDERM ONETIME ONE Stop: 06/23/18 11:46 Potassium Chloride (Pharmacy To Dose - Potassium Replacement) 1 dose .XX ASDIRECTED [facility] Temazepam (Restoril) 7.5 mg PO BEDTIME PRN PRN Reason: Sleep Assessment/Plan Comment:: Acute: Small bowel obstruction * Hx of IBD/Crohn's disease + 4 prior surgeries for this (2012) * Abdomen/pelvis CT is consistent with this diagnosis * Partial obstruction visualized in distal small bowel * Management * NG tube * Bowel rest - NPO * Monitor Is/Os * Pain management * Anti-emetic prn Chronic: IBD/Crohn's disease Iron deficiency anemia Anxiety and depression Chronic headaches Lisandra Rush, MS-3. Dr. Guerrero has examined the patient and reviewed the note <Rosalba Guerrero T - Last Filed: 06/20/18 16:50> H&P History of Present Illness - General Admit Problem/Dx: Admission Diagnosis/Problem Admission Diagnosis/Problem Small bowel obstruction Exam - Vital Signs Vital Signs: Last Vital Signs Temp 36.3 C 06/20/18 15:54 Pulse 77 06/20/18 15:54 Resp 15 06/20/18 15:54 BP 125/69 06/20/18 15:54 Pulse Ox 100 06/20/18 15:54 - Patient Data Lab Results Last 24 hrs: Laboratory Results - last 24 hr 06/20/18 06/20/18 06/20/18 Range/Units 04:50 04:50 05:57 WBC 7.63 (3.98-10.04) K/mm3 RBC 4.49 (3.98-5.22) M/mm3 Hgb 13.2 (11.2-15.7) gm/L Hct 40.3 (34.1-44.9) % MCV 89.8 (79.4-94.8) fl MCH 29.4 (25.6-32.2) pg MCHC 32.8 (32.2-35.5) g/dl RDW Std Deviation 42.9 (36.4-46.3) fL Plt Count 254 (182-369) K/mm3 MPV 11.0 (9.4-12.3) fl Neutrophils % (Manual) 86 H (40-60) % Band Neutrophils % 0 (0-10) % Lymphocytes % (Manual) 10 L (20-40) % Atypical Lymphs % 0 % Monocytes % (Manual) 3 (2-10) % Eosinophils % (Manual) 1 (0.7-5.8) % Basophils % (Manual) 0 L (0.1-1.2) Platelet Estimate Adequate RBC Morph Comment Normal Sodium 139 (136-145) mEq/L Potassium 3.9 (3.5-5.1) mEq/L Chloride 105 (98-107) mEq/L Carbon Dioxide 23 (21-32) mEq/L Anion Gap 14.9 (5-15) BUN 14 (7-18) mg/dL Creatinine 0.9 (0.55-1.02) mg/dL Est Cr Clr Drug Dosing 74.61 mL/min Estimated GFR (MDRD) > 60 (>60) mL/min BUN/Creatinine Ratio 15.6 (14-18) Glucose 145 H (74-106) mg/dL Calcium 9.6 (8.5-10.1) mg/dL Total Bilirubin 1.2 H (0.2-1.0) mg/dL AST 27 (15-37) U/L ALT 23 (14-59) U/L Alkaline Phosphatase 40 L (46-116) U/L Total Protein 7.7 (6.4-8.2) g/dl Albumin 4.1 (3.4-5.0) g/dl Globulin 3.6 gm/dL Albumin/Globulin Ratio 1.1 (1-2) Lipase 143 (73-393) U/L Urine Color Dark yellow (Yellow) Urine Appearance Clear (Clear) Urine pH 7.0 (5.0-8.0) Ur Specific [place] > or = 1.030 (1.005-1.030) Urine Protein 3+ H (Negative) Urine Glucose (UA) Negative (Negative) Urine Ketones 4+ H (Negative) Urine Occult Blood 1+ H (Negative) Urine Nitrite Negative (Negative) Urine Bilirubin 1+ H (Negative) Urine Urobilinogen 0.2 (0.2-1.0) Ur Leukocyte Esterase Negative (Negative) Urine RBC 5-10 H (0-5) /hpf Urine WBC 0-5 (0-5) /hpf Ur Epithelial Cells Not seen (0-5) /hpf Urine Bacteria Not seen (FEW) /hpf Urine Mucus Not seen (FEW) /hpf Urine HCG, Qual (NEGATIVE) 06/20/18 Range/Units 05:57 WBC (3.98-10.04) K/mm3 RBC (3.98-5.22) M/mm3 Hgb (11.2-15.7) gm/L Hct (34.1-44.9) % MCV (79.4-94.8) fl MCH (25.6-32.2) pg MCHC (32.2-35.5) g/dl RDW Std Deviation (36.4-46.3) fL Plt Count (182-369) K/mm3 MPV (9.4-12.3) fl Neutrophils % (Manual) (40-60) % Band Neutrophils % (0-10) % Lymphocytes % (Manual) (20-40) % Atypical Lymphs % % Monocytes % (Manual) (2-10) % Eosinophils % (Manual) (0.7-5.8) % Basophils % (Manual) (0.1-1.2) Platelet Estimate RBC Morph Comment Sodium (136-145) mEq/L Potassium (3.5-5.1) mEq/L Chloride (98-107) mEq/L Carbon Dioxide (21-32) mEq/L Anion Gap (5-15) BUN (7-18) mg/dL Creatinine (0.55-1.02) mg/dL Est Cr Clr Drug Dosing mL/min Estimated GFR (MDRD) (>60) mL/min BUN/Creatinine Ratio (14-18) Glucose (74-106) mg/dL Calcium (8.5-10.1) mg/dL Total Bilirubin (0.2-1.0) mg/dL AST (15-37) U/L ALT (14-59) U/L Alkaline Phosphatase (46-116) U/L Total Protein (6.4-8.2) g/dl Albumin (3.4-5.0) g/dl Globulin gm/dL Albumin/Globulin Ratio (1-2) Lipase (73-393) U/L Urine Color (Yellow) Urine Appearance (Clear) Urine pH (5.0-8.0) Ur Specific [place] (1.005-1.030) Urine Protein (Negative) Urine Glucose (UA) (Negative) Urine Ketones (Negative) Urine Occult Blood (Negative) Urine Nitrite (Negative) Urine Bilirubin (Negative) Urine Urobilinogen (0.2-1.0) Ur Leukocyte Esterase (Negative) Urine RBC (0-5) /hpf Urine WBC (0-5) /hpf Ur Epithelial Cells (0-5) /hpf Urine Bacteria (FEW) /hpf Urine Mucus (FEW) /hpf Urine HCG, Qual Negative (NEGATIVE) Result Diagrams: 06/20/18 04:50 06/20/18 04:50 Orders Last 24hrs: Active Orders 24 hr Category Date Time Status Admission Status [Patient Status] [ADT] Routine ADT 06/20/18 09:33 Active Ambulate [RC] ASDIRECTED Care 06/20/18 11:31 Active Height and Weight [RC] DAILY Care 06/20/18 11:26 Active Intake and Output [RC] 04,16 Care 06/20/18 11:26 Active Oxygen Therapy [RC] PRN Care 06/20/18 11:26 Active RT Aerosol Therapy [RC] ASDIRECTED Care 06/20/18 11:28 Active Up ad Soni [RC] ASDIRECTED Care 06/20/18 11:26 Active VTE/DVT Education [RC] PER UNIT ROUTINE Care 06/20/18 11:26 Active Vital Signs [RC] Q4HR Care 06/20/18 11:26 Active Consult to Spiritual Care [CONS] Routine Cons 06/20/18 11:26 Active Nothing per Oral Now Diet [DIET] Diet 06/20/18 Lunch Active BASIC METABOLIC PANEL,BMP [CHEM] AM Lab 06/21/18 05:11 Ordered BASIC METABOLIC PANEL,BMP [CHEM] AM Lab 06/22/18 05:11 Ordered BASIC METABOLIC PANEL,BMP [CHEM] AM Lab 06/23/18 05:11 Ordered C-REACTIVE PROTEIN [CHEM] AM Lab 06/21/18 05:11 Ordered C-REACTIVE PROTEIN [CHEM] AM Lab 06/22/18 05:11 Ordered C-REACTIVE PROTEIN [CHEM] AM Lab 06/23/18 05:11 Ordered CBC WITH AUTO DIFF [HEME] AM Lab 06/21/18 05:11 Ordered CBC WITH AUTO DIFF [HEME] AM Lab 06/22/18 05:11 Ordered CBC WITH AUTO DIFF [HEME] AM Lab 06/23/18 05:11 Ordered MAGNESIUM [CHEM] AM Lab 06/21/18 05:11 Ordered MAGNESIUM [CHEM] AM Lab 06/22/18 05:11 Ordered MAGNESIUM [CHEM] AM Lab 06/23/18 05:11 Ordered Acetaminophen [Tylenol] Med 06/20/18 11:26 Active 650 mg PO Q4H PRN Albuterol/Ipratropium [DuoNeb 3.0-0.5 MG/3 ML] Med 06/20/18 11:26 Active 3 ml NEB Q4H PRN Dextrose 5%-Lactated Ringers 1,000 ml Med 06/20/18 11:45 Active IV ASDIRECTED HYDROmorphone [Dilaudid] Med 06/20/18 11:26 Active 0.5 mg IVPUSH Q2H PRN LORazepam [Ativan] Med 06/20/18 11:26 Active 1 mg IV Q6H PRN Magnesium Rep Pharmacy to Dose [Pharmacy to Dose - Med 06/20/18 11:30 Active Magnesium Replacement] 1 dose .XX ASDIRECTED Metoclopramide [Reglan] Med 06/20/18 12:00 Active 10 mg IVPUSH Q6H Metoprolol Tartrate [Lopressor] Med 06/20/18 11:25 Active 5 mg IVPUSH Q4H PRN Potassium Rep Pharmacy to Dose [Pharmacy to Dose - Med 06/20/18 11:30 Active Potassium Replacement] 1 dose .XX ASDIRECTED Remove Patch Med 06/23/18 11:45 Once 0 ea TRDERM ONETIME ONE Temazepam [Restoril] Med 06/20/18 11:26 Active 7.5 mg PO BEDTIME PRN hydrALAZINE [Apresoline] Med 06/20/18 11:25 Active 20 mg IVPUSH Q4H PRN NG [Nasogastric Orogastric Tube Insertion] [OM.PC] Oth 06/20/18 07:31 Ordered Routine Sequential Compression Device [OM.PC] Per Unit Routine Oth 06/20/18 11:26 Ordered Resuscitation Status Routine Resus Stat 06/20/18 11:26 Ordered Medication Orders Acetaminophen (Tylenol) 650 mg PO Q4H PRN PRN Reason: Pain (Mild 1-3)/fever Albuterol/Ipratropium (Duoneb 3.0-0.5 Mg/3 Ml) 3 ml NEB Q4H PRN PRN Reason: Shortness Of Breath/wheezing Hydralazine HCl (Apresoline) 20 mg IVPUSH Q4H PRN PRN Reason: Hypertension Hydromorphone HCl (Dilaudid) 0.5 mg IVPUSH Q2H PRN PRN Reason: Pain (severe 7-10) Dextrose/Lactated Ringer's (Dextrose 5%-Lactated Ringers) 1,000 mls @ 125 mls/ hr IV ASDIRECTED [facility] Last Admin: 06/20/18 11:54 Dose: 125 mls/hr Lorazepam (Ativan) 1 mg IV Q6H PRN PRN Reason: Anxiety Magnesium Sulfate (Pharmacy To Dose - Magnesium Replacement) 1 dose .XX ASDIRECTED [facility] Metoclopramide HCl (Reglan) 10 mg IVPUSH Q6H [facility] Last Admin: 06/20/18 11:53 Dose: 10 mg Metoprolol Tartrate (Lopressor) 5 mg IVPUSH Q4H PRN PRN Reason: Tachycardia Miscellaneous Information (Remove Patch) 0 ea TRDERM ONETIME ONE Stop: 06/23/18 11:46 Potassium Chloride (Pharmacy To Dose - Potassium Replacement) 1 dose .XX ASDIRECTED [facility] Temazepam (Restoril) 7.5 mg PO BEDTIME PRN PRN Reason: Sleep Assessment/Plan Comment:: The patient was seen and examined at bedside in concert with the medical student. The admission assessment and plans were discussed and agreed upon with me. Patient carries a long standing hx/o CD and has had multiple intra- abdominal surgery and colon resection. She is current on entyvio for maintenance. Treatment will be mainly supportive and prokinetic agent. Advised patient to walk as much as she can. was present at beside during my interview.
[2018-06-20] MEDS ORDERED: AZATHIOPRINE 50 MG PO ONE (17:15)
[2018-06-21] MEDS: Dextrose 5%-Lactated Ringers 1,000 ML IV SCH ×3 (03:45→21:58)
[2018-06-21] MEDS: Metoclopramide 10 MG/2 ML SDV IVPUSH SCH ×3 (06:09→18:28)
--- NOTE | 2018-06-21 08:28 | PCM.PN ---
- General Info Date of Service: 06/21/18 Admission Dx/Problem (Free Text): Admission Diagnosis/Problem Admission Diagnosis/Problem Small bowel obstruction Subjective Update: Follow Up Functional Status: Reports: Pain Controlled, Ambulating, Urinating. Denies: New Symptoms - Review of Systems General: Denies: Fever, Weakness, Fatigue, Malaise, Chills HEENT: Reports: No Symptoms Pulmonary: Denies: Shortness of Breath Cardiovascular: Denies: Chest Pain, Dyspnea on Exertion, Lightheadedness Gastrointestinal: Reports: Flatus. Denies: Abdominal Pain, Decreased Appetite, Diarrhea, Nausea, Vomiting Genitourinary: Reports: No Symptoms Musculoskeletal: Reports: No Symptoms Skin: Reports: No Symptoms Neurological: Denies: Confusion, Difficulty Walking, Weakness, Gait Disturbance Psychiatric: Denies: Depression, Anxiety, Agitation, Hallucinations Systems Review Comment:: No overnight or acute issues. She rested well last night. She denies having nausea or vomiting. She is now passing gas. Her NGT output is mild. - Patient Data Vitals - Most Recent: Last Vital Signs Temp 36.5 C 06/20/18 20:45 Pulse 71 06/20/18 20:45 Resp 16 06/20/18 20:45 BP 124/88 06/20/18 20:45 Pulse Ox 100 06/20/18 20:45 Weight - Most Recent: 49.895 kg I&O - Last 24 Hours: Intake & Output 06/20/18 06/21/18 06/21/18 22:59 06:59 14:59 Intake Total 797 2037 Output Total 500 400 Balance 297 1637 Lab Results Last 24 Hours: Laboratory Results - last 24 hr 06/21/18 06/21/18 Range/Units 05:47 05:47 WBC 3.44 L (3.98-10.04) K/mm3 RBC 3.42 L (3.98-5.22) M/mm3 Hgb 10.0 L (11.2-15.7) gm/L Hct 31.8 L (34.1-44.9) % MCV 93.0 (79.4-94.8) fl MCH 29.2 (25.6-32.2) pg MCHC 31.4 L (32.2-35.5) g/dl RDW Std Deviation 43.7 (36.4-46.3) fL Plt Count 130 L (182-369) K/mm3 MPV 11.0 (9.4-12.3) fl Neut % (Auto) 64.8 (34.0-71.1) % Lymph % (Auto) 23.8 (19.3-51.7) % [place] % (Auto) 9.6 (4.7-12.5) % Eos % (Auto) 1.5 (0.7-5.8) Baso % (Auto) 0.3 (0.1-1.2) % Neut # (Auto) 2.23 (1.56-6.13) K/mm3 Lymph # (Auto) 0.82 L (1.18-3.74) K/mm3 [place] # (Auto) 0.33 (0.24-0.36) K/mm3 Eos # (Auto) 0.05 (0.04-0.36) K/mm3 Baso # (Auto) 0.01 (0.01-0.08) K/mm3 Sodium 144 (136-145) mEq/L Potassium 3.4 L (3.5-5.1) mEq/L Chloride 110 H (98-107) mEq/L Carbon Dioxide 28 (21-32) mEq/L Anion Gap 9.4 (5-15) BUN 11 (7-18) mg/dL Creatinine 0.7 (0.55-1.02) mg/dL Est Cr Clr Drug Dosing 95.93 mL/min Estimated GFR (MDRD) > 60 (>60) mL/min BUN/Creatinine Ratio 15.7 (14-18) Glucose 113 H (74-106) mg/dL Calcium 8.0 L (8.5-10.1) mg/dL Magnesium 1.6 L (1.8-2.4) mg/dl C-Reactive Protein < 0.2 (<1.0) mg/dL Med Orders - Current: Current Medications Acetaminophen (Tylenol) 650 mg PO Q4H PRN PRN Reason: Pain (Mild 1-3)/fever Albuterol/Ipratropium (Duoneb 3.0-0.5 Mg/3 Ml) 3 ml NEB Q4H PRN PRN Reason: Shortness Of Breath/wheezing Azathioprine (Imuran) 125 mg PO DAILY [facility] Folic Acid (Folic Acid) 0.4 mg PO DAILY [facility] Hydralazine HCl (Apresoline) 20 mg IVPUSH Q4H PRN PRN Reason: Hypertension Hydromorphone HCl (Dilaudid) 0.5 mg IVPUSH Q2H PRN PRN Reason: Pain (severe 7-10) Last Admin: 06/20/18 20:58 Dose: 0.5 mg Dextrose/Lactated Ringer's (Dextrose 5%-Lactated Ringers) 1,000 mls @ 125 mls/ hr IV ASDIRECTED [facility] Last Admin: 06/21/18 03:45 Dose: 125 mls/hr Lorazepam (Ativan) 1 mg IV Q6H PRN PRN Reason: Anxiety Magnesium Sulfate (Pharmacy To Dose - Magnesium Replacement) 1 dose .XX ASDIRECTED [facility] Metoclopramide HCl (Reglan) 10 mg IVPUSH Q6H [facility] Last Admin: 06/21/18 06:09 Dose: 10 mg Metoprolol Tartrate (Lopressor) 5 mg IVPUSH Q4H PRN PRN Reason: Tachycardia Miscellaneous Information (Remove Patch) 0 ea TRDERM ONETIME ONE Stop: 06/23/18 11:46 Potassium Chloride (Pharmacy To Dose - Potassium Replacement) 1 dose .XX ASDIRECTED [facility] Temazepam (Restoril) 7.5 mg PO BEDTIME PRN PRN Reason: Sleep Last Admin: 06/20/18 23:48 Dose: 7.5 mg Discontinued Medications Azathioprine (Imuran) 125 mg PO ONETIME ONE Stop: 06/20/18 17:16 Last Admin: 06/20/18 17:09 Dose: 125 mg Diatrizoate Meglum/Diatrizoate Sod (Gastrografin 37%) 90 ml PO ONETIME ONE Stop: 06/20/18 05:46 Last Admin: 06/20/18 07:03 Dose: 90 ml Hydromorphone HCl (Dilaudid) 0.5 mg IVPUSH ONETIME ONE Stop: 06/20/18 04:39 Last Admin: 06/20/18 04:48 Dose: 0.5 mg Hydromorphone HCl (Dilaudid) 0.5 mg IVPUSH ONETIME ONE Stop: 06/20/18 07:35 Last Admin: 06/20/18 07:41 Dose: 0.5 mg Sodium Chloride (Normal Saline) 1,000 mls @ 150 mls/hr IV ASDIRECTED [facility] Last Admin: 06/20/18 04:48 Dose: 150 mls/hr Iopamidol (Isovue-300 (61%)) 100 ml IVPUSH ONETIME ONE Stop: 06/20/18 05:46 Last Admin: 06/20/18 07:03 Dose: 100 ml Lidocaine HCl (Xylocaine 2% Jelly) 5 ml MUCMEM ONETIME STA Stop: 06/20/18 07:35 Last Admin: 06/20/18 08:13 Dose: Not Given Lidocaine HCl (Xylocaine 2% Jelly) Confirm Administered Dose 10 ml .ROUTE .STK- MED ONE Stop: 06/20/18 07:39 Last Admin: 06/20/18 08:13 Dose: Not Given Lidocaine HCl (Xylocaine 2% Jelly) 10 ml MUCMEM ONETIME ONE Stop: 06/20/18 07:54 Last Admin: 06/20/18 08:13 Dose: 10 ml Ondansetron HCl (Zofran) 4 mg IVPUSH ONETIME ONE Stop: 06/20/18 04:38 Last Admin: 06/20/18 04:56 Dose: 4 mg Ondansetron HCl (Zofran) 4 mg IVPUSH ONETIME ONE Stop: 06/20/18 05:44 Last Admin: 06/20/18 05:47 Dose: 4 mg Ondansetron HCl (Zofran) 4 mg IVPUSH ONETIME ONE Stop: 06/20/18 09:15 Last Admin: 06/20/18 09:19 Dose: 4 mg Pantoprazole Sodium (Protonix Iv) 40 mg IVPUSH ONETIME ONE Stop: 06/20/18 11:27 Last Admin: 06/20/18 11:53 Dose: 40 mg Scopolamine (Transderm-Scop) 1.5 mg TRDERM NOW STA Stop: 06/20/18 11:33 Last Admin: 06/20/18 11:53 Dose: 1.5 mg - Exam General: Alert, Oriented, Cooperative, No Acute Distress, Other (thinly built) HEENT: Pupils Equal, Pupils Reactive, EOMI, Mucous Membr. Moist/[place], Other ( NGT in placed) Neck: Supple, Trachea Midline, No JVD, No Thyromegaly Lungs: Clear to Auscultation, Normal Respiratory Effort Cardiovascular: Regular Rate, Regular Rhythm GI/Abdominal Exam: Normal Bowel Sounds, Soft, Non-Tender, No Organomegaly, No Distention, No Abnormal Bruit, No Mass (Female) Exam: Deferred Back Exam: Normal Inspection, Full Range of Motion Extremities: Normal Inspection, Normal Range of Motion, Non-Tender, No Pedal Edema, Normal Capillary Refill Peripheral Pulses: 2+: Dorsalis Pedis (L), Dorsalis Pedis (R) Skin: Warm, Dry, Intact Neurological: No New Focal Deficit Psy/Mental Status: Alert, Normal Affect, Normal Mood - Problem List Review Problem List Initiated/Reviewed/Updated: Yes - My Orders Last 24 Hours: My Active Orders 06/20/18 11:25 Metoprolol Tartrate [Lopressor] 5 mg IVPUSH Q4H PRN hydrALAZINE [Apresoline] 20 mg IVPUSH Q4H PRN 06/20/18 11:26 Height and Weight [RC] DAILY Intake and Output [RC] 04,16 Oxygen Therapy [RC] PRN Up ad Soni [RC] ASDIRECTED VTE/DVT Education [RC] PER UNIT ROUTINE Vital Signs [RC] Q4HR Consult to Spiritual Care [CONS] Routine Acetaminophen [Tylenol] 650 mg PO Q4H PRN Albuterol/Ipratropium [DuoNeb 3.0-0.5 MG/3 ML] 3 ml NEB Q4H PRN HYDROmorphone [Dilaudid] 0.5 mg IVPUSH Q2H PRN LORazepam [Ativan] 1 mg IV Q6H PRN Temazepam [Restoril] 7.5 mg PO BEDTIME PRN Sequential Compression Device [OM.PC] Per Unit Routine Resuscitation Status Routine 06/20/18 11:28 RT Aerosol Therapy [RC] ASDIRECTED 06/20/18 11:30 Magnesium Rep Pharmacy to Dose [Pharmacy to Dose - Magnesium Replacement] 1 dose .XX ASDIRECTED Potassium Rep Pharmacy to Dose [Pharmacy to Dose - Potassium Replacement] 1 dose .XX ASDIRECTED 06/20/18 11:31 Ambulate [RC] ASDIRECTED 06/20/18 11:45 Dextrose 5%-Lactated Ringers 1,000 ml IV ASDIRECTED 06/20/18 12:00 Metoclopramide [Reglan] 10 mg IVPUSH Q6H 06/20/18 Lunch Nothing per Oral Now Diet [DIET] 06/21/18 09:00 Folic Acid 0.4 mg PO DAILY azaTHIOprine [Imuran] 125 mg PO DAILY 06/22/18 05:11 BASIC METABOLIC PANEL,BMP [CHEM] AM C-REACTIVE PROTEIN [CHEM] AM CBC WITH AUTO DIFF [HEME] AM MAGNESIUM [CHEM] AM 06/23/18 05:11 BASIC METABOLIC PANEL,BMP [CHEM] AM C-REACTIVE PROTEIN [CHEM] AM CBC WITH AUTO DIFF [HEME] AM MAGNESIUM [CHEM] AM 06/23/18 11:45 Remove Patch 0 ea TRDERM ONETIME ONE - Plan Plan:: Acute: Small Bowel Obstruction, Improved * Hx of IBD/Crohn's disease + 4 prior surgeries for this (2012) * Abdomen/pelvis CT is consistent with this diagnosis * Partial obstruction visualized in distal small bowel * Management * NG tube-to d/c * Discontinue Bowel rest * Monitor Is/Os * Pain management * Anti-emetic prn E-Lytes Abnormality * K 3.4, Ca 2+ 8.0 and Mg 1.7 * 2/2 GI loss form NGT and no oral intake * Replete and monitor * Expect to improve once she resume oral meal Chronic: IBD/Crohn's disease Iron deficiency anemia Anxiety and depression Chronic headaches Plan: She is clinically much better Discontinue NGT Start clear liquid diet and advance as tolerated Routine AM Labs Encourage to continue walking If she remains stable and continue to do well, she may be able to go home tomorrow Updated about her clinical progress and discharge care plan.
[2018-06-21] MEDS: Folic Acid 1 MG Tab PO SCH (08:52)
[2018-06-21] MEDS ORDERED: Folic Acid 1 MG Tab PO SCH (09:00)
[2018-06-21] MEDS ORDERED: Potassium Chloride 20 MEQ Tab.ER PO ONE (10:00)
[2018-06-21] MEDS ORDERED: Magnesium Sulfate/Water 2 GM in Premix Bag 1 BAG IV ONE (10:00)
[2018-06-22] MEDS: Metoclopramide 10 MG/2 ML SDV IVPUSH SCH ×2 (01:15→05:59)
[2018-06-22] MEDS: Dextrose 5%-Lactated Ringers 1,000 ML IV SCH (05:48)
[2018-06-22 07:11] VITALS: BP 121/86
--- NOTE | 2018-06-22 08:11 | PCM.DCSUM1 ---
Discharge Summary - Hospital Course Brief History: 27 y/o patient presented to ER early this morning 06/20 with complaints of abdominal pain, nausea, and vomiting. This began suddenly on the afternoon of 06/19. She had abdominal pain after work and vomited later that evening after eating supper. She was then awake through the night with continuous abdominal pain, nausea, and vomiting. Her symptoms worsened and she was unable to sleep so she came to the ER around 0400. The patient has a history of Crohn disease, and stated that her symptoms are similar to prior Crohn's flares, except that she ordinarily would have diarrhea, which she is not currently experiencing. She was diagnosed with Crohn's disease at the age of 11. She has had four surgeries related to her Crohn disease, all occurring over a span of 13 months in 2012. She states she was very sick at the time and experienced a severe infection and rapid weight loss and had to have a feeding tube. Since then she has struggled with frequent diarrhea and difficulty gaining weight. 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 Tashi Rousseau, at [facility]. PCP is Dr. Dre Pemberton. She denies recent antibiotic use, spoiled food , travel, and sick contacts. She was given IVF, dilaudid, and zofran in the ER , which improved her symptoms. Further ER workup included labs and imaging. Labs displayed glucose elevated at 145 and bilirubin slightly elevated at 1.2. UPT was negative. UA showed ketones, protein, and blood in urine. 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 NG tube was placed. Patient was admitted for further management of small bowel obstruction. Diagnosis: Stroke: No Modified [place] Scale: No Symptoms at All Modified [place] Scale Score: 0 - Discharge Data Discharge Date: 06/22/18 Discharge Disposition: Home, Self-Care 01 Condition: Good - Discharge Diagnosis/Problem(s) (1) Partial small bowel obstruction SNOMED Code(s): 931990525 ICD Code: K56.600 - PARTIAL INTESTINAL OBSTRUCTION, UNSPECIFIED TO CAUSE Status: Resolved (2) Crohns disease of small intestine SNOMED Code(s): 45961515 ICD Code: K50.00 - CROHN'S DISEASE OF SMALL INTESTINE WITHOUT COMPLICATIONS Status: Chronic Qualifiers: Digestive disease complication type: with intestinal obstruction Qualified Code(s): K50.012 - Crohn's disease of small intestine with intestinal obstruction (3) Hypokalemia SNOMED Code(s): 20654947 ICD Code: E87.6 - HYPOKALEMIA Status: Resolved (4) Hypocalcemia syndrome SNOMED Code(s): 0312633 ICD Code: E83.51 - HYPOCALCEMIA Status: Acute (5) Hypomagnesemia syndrome SNOMED Code(s): 606100898 ICD Code: E83.42 - HYPOMAGNESEMIA Status: Acute (6) Adnexal cyst SNOMED Code(s): 92850849219526 ICD Code: N94.9 - UNSP COND ASSOC W FEMALE GENITAL ORGANS AND MENSTRUAL CYCLE Status: Acute Problem Details: - Right - Patient Summary/Data Operative Procedure(s) Performed: None Complications: None Consults: Consultations 06/20/18 11:26 Consult to Spiritual Care [CONS] Routine Labs Pending at D/C: None Recommended Follow-up Testing/Procedures: Recommend Pelvic U/S outpatient to assess adnexal cyst Planned Operative Procedure(s) after DC: None Hospital Course: Patient was primarily admitted for medical treatment of partial small bowel obstruction diagnosed on CT scan which we felt maybe related to her underlying crohn's disease but could not r/o adnexal cyst. She was primarily provided supportive care along with pro-kinetic agent and she slowly improved on this regimen. Her hospital course was uncomplicated and the rest of her chronic medical illness remained stable during this admission. She was stable upon discharge. She was provided a short course of magnesium oxide for supplement. She was advised to follow up with her PCP for further evaluation of her adnexal cyst. She was further advised to come back or seek immediate care should her symptoms persist or get worse. The patient and her expressed understanding and in agreement with the plan as discussed above. All questions were answered. - Patient Instructions Diet: Usual Diet as Tolerated Activity: As Tolerated Driving: May Drive Today Showering/Bathing: May Shower Notify Provider of: Fever, Increased Pain, Nausea and/or Vomiting Other/Special Instructions: - Please take new medication as directed. - Resume all home medications. - Continue routine home activities as tolerated. - Recommend Pelvic U/S outpatient for further eval of your right adnexal cyst. - Call or follow up with your PCP for any questions or concerns after discharge. - Follow up with your PCP in 1 week with repeat labs (BMP and Mg). - Come back or seek immediate care should your symptoms persist or get worse - Discharge Plan *PRESCRIPTION DRUG MONITORING PROGRAM REVIEWED*: Not Applicable *COPY OF PRESCRIPTION DRUG MONITORING REPORT IN PATIENT KILEY: Not Applicable Prescriptions/Med Rec: Magnesium Oxide 500 mg PO BID #10 tablet Home Medications: Home Meds Vedolizumab [Entyvio] 0 mg IV ASDIRECTED 12/10/17 [History] Folic Acid 400 mcg PO DAILY 06/20/18 [History] Forvia 2 tab PO DAILY 06/20/18 [History] azaTHIOprine [Azathioprine] 125 mg PO DAILY 06/20/18 [History] Magnesium Oxide 500 mg PO BID #10 tablet 06/22/18 [Rx] Patient Handouts: Small Bowel Obstruction, [id number], Hypomagnesemia, Hypokalemia, Hypocalcemia, Adult Referrals: Dre Pemberton MD [Primary Care Provider] - (Please schedule a follow up with him in 5-7 days or sooner if needed. ) - Discharge Summary/Plan Comment DC Time >30 min.: No Discharge Summary/Plan Comment: Discharge to Home - General Info Date of Service: 06/22/18 Admission Dx/Problem (Free Text: Admission Diagnosis/Problem Admission Diagnosis/Problem Small bowel obstruction Subjective Update: Follow Up Functional Status: Reports: Pain Controlled, Tolerating Diet, Ambulating, Urinating - Review of Systems General: Denies: Fever, Weakness, Fatigue, Malaise, Chills HEENT: Reports: No Symptoms Pulmonary: Denies: Shortness of Breath Cardiovascular: Denies: Chest Pain, Dyspnea on Exertion, Lightheadedness Gastrointestinal: Reports: Flatus. Denies: Abdominal Pain, Constipation, Decreased Appetite, Diarrhea, Difficulty Swallowing, Nausea, Vomiting Genitourinary: Reports: No Symptoms Musculoskeletal: Reports: No Symptoms Skin: Denies: Cyanosis, Mottled, Pallor, Diaphoresis, Bruising, Rash Neurological: Denies: Confusion, Difficulty Walking, Weakness, Gait Disturbance Psychiatric: Denies: Depression, Anxiety, Agitation, Hallucinations Systems Review Comment: No overnight or acute issues. She slept well. She looks pretty good. She has been tolerating regular diet w/o any GI issues. - Patient Data Vitals - Most Recent: Last Vital Signs Temp 36.2 C 06/22/18 05:56 Pulse 74 06/22/18 05:56 Resp 17 06/22/18 05:56 BP 121/86 06/22/18 05:56 Pulse Ox 97 06/22/18 05:56 Weight - Most Recent: 52.163 kg I&O - Last 24 hours: Intake & Output 06/21/18 06/22/18 06/22/18 22:59 06:59 14:59 Intake Total 1496 1833 Output Total 250 1600 Balance 1246 233 Lab Results - Last 24 hrs: Laboratory Results - last 24 hr 06/22/18 06/22/18 Range/Units 05:42 05:42 WBC 3.18 L (3.98-10.04) K/mm3 RBC 3.42 L (3.98-5.22) M/mm3 Hgb 10.0 L (11.2-15.7) gm/L Hct 31.6 L (34.1-44.9) % MCV 92.4 (79.4-94.8) fl MCH 29.2 (25.6-32.2) pg MCHC 31.6 L (32.2-35.5) g/dl RDW Std Deviation 42.9 (36.4-46.3) fL Plt Count 142 L (182-369) K/mm3 MPV 11.3 (9.4-12.3) fl Neut % (Auto) 64.4 (34.0-71.1) % Lymph % (Auto) 23.0 (19.3-51.7) % [place] % (Auto) 10.4 (4.7-12.5) % Eos % (Auto) 1.6 (0.7-5.8) Baso % (Auto) 0.3 (0.1-1.2) % Neut # (Auto) 2.05 (1.56-6.13) K/mm3 Lymph # (Auto) 0.73 L (1.18-3.74) K/mm3 [place] # (Auto) 0.33 (0.24-0.36) K/mm3 Eos # (Auto) 0.05 (0.04-0.36) K/mm3 Baso # (Auto) 0.01 (0.01-0.08) K/mm3 Sodium 142 (136-145) mEq/L Potassium 3.8 (3.5-5.1) mEq/L Chloride 110 H (98-107) mEq/L Carbon Dioxide 25 (21-32) mEq/L Anion Gap 10.8 (5-15) BUN 7 (7-18) mg/dL Creatinine 0.7 (0.55-1.02) mg/dL Est Cr Clr Drug Dosing 95.93 mL/min Estimated GFR (MDRD) > 60 (>60) mL/min BUN/Creatinine Ratio 10.0 L (14-18) Glucose 98 (74-106) mg/dL Calcium 8.0 L (8.5-10.1) mg/dL Magnesium 1.6 L (1.8-2.4) mg/dl C-Reactive Protein 0.2 (<1.0) mg/dL Med Orders - Current: Current Medications Acetaminophen (Tylenol) 650 mg PO Q4H PRN PRN Reason: Pain (Mild 1-3)/fever Albuterol/Ipratropium (Duoneb 3.0-0.5 Mg/3 Ml) 3 ml NEB Q4H PRN PRN Reason: Shortness Of Breath/wheezing Azathioprine (Imuran) 125 mg PO DAILY [facility] Last Admin: 06/21/18 08:53 Dose: 125 mg Folic Acid (Folic Acid) 0.5 mg PO DAILY [facility] Last Admin: 06/21/18 08:52 Dose: 0.5 mg Hydralazine HCl (Apresoline) 20 mg IVPUSH Q4H PRN PRN Reason: Hypertension Hydromorphone HCl (Dilaudid) 0.5 mg IVPUSH Q2H PRN PRN Reason: Pain (severe 7-10) Last Admin: 06/20/18 20:58 Dose: 0.5 mg Dextrose/Lactated Ringer's (Dextrose 5%-Lactated Ringers) 1,000 mls @ 125 mls/ hr IV ASDIRECTED [facility] Last Admin: 06/22/18 05:48 Dose: 125 mls/hr Lorazepam (Ativan) 1 mg IV Q6H PRN PRN Reason: Anxiety Magnesium Sulfate (Pharmacy To Dose - Magnesium Replacement) 1 dose .XX ASDIRECTED [facility] Metoclopramide HCl (Reglan) 10 mg IVPUSH Q6H [facility] Last Admin: 06/22/18 05:59 Dose: 10 mg Metoprolol Tartrate (Lopressor) 5 mg IVPUSH Q4H PRN PRN Reason: Tachycardia Miscellaneous Information (Remove Patch) 0 ea TRDERM ONETIME ONE Stop: 06/23/18 11:46 Potassium Chloride (Pharmacy To Dose - Potassium Replacement) 1 dose .XX ASDIRECTED [facility] Temazepam (Restoril) 7.5 mg PO BEDTIME PRN PRN Reason: Sleep Last Admin: 06/20/18 23:48 Dose: 7.5 mg Discontinued Medications Azathioprine (Imuran) 125 mg PO ONETIME ONE Stop: 06/20/18 17:16 Last Admin: 06/20/18 17:09 Dose: 125 mg Diatrizoate Meglum/Diatrizoate Sod (Gastrografin 37%) 90 ml PO ONETIME ONE Stop: 06/20/18 05:46 Last Admin: 06/20/18 07:03 Dose: 90 ml Folic Acid (Folic Acid) 0.4 mg PO DAILY [facility] Hydromorphone HCl (Dilaudid) 0.5 mg IVPUSH ONETIME ONE Stop: 06/20/18 04:39 Last Admin: 06/20/18 04:48 Dose: 0.5 mg Hydromorphone HCl (Dilaudid) 0.5 mg IVPUSH ONETIME ONE Stop: 06/20/18 07:35 Last Admin: 06/20/18 07:41 Dose: 0.5 mg Sodium Chloride (Normal Saline) 1,000 mls @ 150 mls/hr IV ASDIRECTED [facility] Last Admin: 06/20/18 04:48 Dose: 150 mls/hr Magnesium Sulfate 2 gm/ Premix 50 mls @ 25 mls/hr IV ONETIME ONE Stop: 06/21/18 11:59 Last Admin: 06/21/18 11:06 Dose: 25 mls/hr Iopamidol (Isovue-300 (61%)) 100 ml IVPUSH ONETIME ONE Stop: 06/20/18 05:46 Last Admin: 06/20/18 07:03 Dose: 100 ml Lidocaine HCl (Xylocaine 2% Jelly) 5 ml MUCMEM ONETIME STA Stop: 06/20/18 07:35 Last Admin: 06/20/18 08:13 Dose: Not Given Lidocaine HCl (Xylocaine 2% Jelly) Confirm Administered Dose 10 ml .ROUTE .STK- MED ONE Stop: 06/20/18 07:39 Last Admin: 06/20/18 08:13 Dose: Not Given Lidocaine HCl (Xylocaine 2% Jelly) 10 ml MUCMEM ONETIME ONE Stop: 06/20/18 07:54 Last Admin: 06/20/18 08:13 Dose: 10 ml Ondansetron HCl (Zofran) 4 mg IVPUSH ONETIME ONE Stop: 06/20/18 04:38 Last Admin: 06/20/18 04:56 Dose: 4 mg Ondansetron HCl (Zofran) 4 mg IVPUSH ONETIME ONE Stop: 06/20/18 05:44 Last Admin: 06/20/18 05:47 Dose: 4 mg Ondansetron HCl (Zofran) 4 mg IVPUSH ONETIME ONE Stop: 06/20/18 09:15 Last Admin: 06/20/18 09:19 Dose: 4 mg Pantoprazole Sodium (Protonix Iv) 40 mg IVPUSH ONETIME ONE Stop: 06/20/18 11:27 Last Admin: 06/20/18 11:53 Dose: 40 mg Potassium Chloride (Klor-Con M20) 40 meq PO ONETIME ONE Stop: 06/21/18 10:01 Last Admin: 06/21/18 11:04 Dose: 40 meq Scopolamine (Transderm-Scop) 1.5 mg TRDERM NOW STA Stop: 06/20/18 11:33 Last Admin: 06/20/18 11:53 Dose: 1.5 mg - Exam General: Reports: Alert, Oriented, Cooperative, No Acute Distress HEENT: Reports: Pupils Equal, Pupils Reactive, EOMI, Mucous Membr. Moist/[place] Lungs: Reports: Clear to Auscultation, Normal Respiratory Effort Cardiovascular: Reports: Regular Rate, Regular Rhythm GI/Abdominal Exam: Normal Bowel Sounds, Soft, Non-Tender, No Organomegaly, No Distention, No Abnormal Bruit, No Mass (Female) Exam: Deferred Rectal (Female) Exam: Deferred Back Exam: Reports: Normal Inspection, Decreased Range of Motion Extremities: Normal Inspection, Normal Range of Motion, Non-Tender, No Pedal Edema, Normal Capillary Refill Skin: Reports: Warm, Dry, Intact Neurological: Reports: No New Focal Deficit Psy/Mental Status: Reports: Alert, Normal Affect, Normal Mood
[2018-06-22] MEDS: Folic Acid 1 MG Tab PO SCH (08:34)
[2018-06-22] MEDS ORDERED: Magnesium Sulfate/Water 2 GM in Premix Bag 1 BAG IV ONE (09:30)
== END 2018-06-22 09:25 | disposition home or self-care (01) | DRG 247 ==
LOC: JD.ED 04:17 → JD.MS 09:33
PROVIDERS: ADMIT Internal Medicine; ATTEND Internal Medicine
PROC: 0D9670Z Drainage of Stomach with Drainage Device, Via Natural or Artificial Opening (ICD-10-PCS; principal; 2018-06-20)
DX: K56.600 Partial intestinal obstruction, unspecified as to cause (principal); E83.51 Hypocalcemia; E83.42 Hypomagnesemia; K50.90 Crohn's disease, unspecified, without complications; E87.6 Hypokalemia; N85.8 Other specified noninflammatory disorders of uterus; D50.9 Iron deficiency anemia, unspecified; F41.9 Anxiety disorder, unspecified; F32.9 Major depressive disorder, single episode, unspecified; R51 Headache; Z88.2 Allergy status to sulfonamides; Z79.899 Other long term (current) drug therapy; Z90.49 Acquired absence of other specified parts of digestive tract; Z88.8 Allergy status to other drugs, medicaments and biological substances
CPT/HCPCS: 36415; 74177; 74177-26; 80048; 80053; 81001; 81025; 83690; 83735; 85007; 85025; 85027; 86140; 96361; 96374; 96375; 96376; 99285-25; A9270-GY; C9113; J1170; J2405; J2765; J3475; J7040; J7042; J7500; Q9963; Q9967